=== PATIENT | male | born 2000 | race Caucasian/White ===

== ENCOUNTER 2020-01-15 18:46 | Emergency (ER) | payer OTHER, SELFPAY ==
[2020-01-15 19:00] VITALS: BP 113/70; PULSE 57; RESP 16; TEMP 37; O2SAT 98
--- NOTE | 2020-01-15 19:00 | ED.ABDPAIN ---
HPI - Abdominal Pain General Chief Complaint: Abdominal Pain Stated Complaint: abd pain Time Seen by Provider: 01/15/20 19:01 Source: patient and RN notes reviewed Mode of arrival: ambulatory Limitations: no limitations History of Present Illness HPI narrative: 19-year-old male presents with concern for right lower quadrant abdominal pain that started last night. Reports at rest the abdominal pain 2/10, when he presses on the right lower quadrant the pain is 6/10. He reports normal appetite, had a normal bowel movement this morning. Denies nausea, vomiting, fever, back pain. Denies dysuria, hematuria, scrotal pain, swelling, redness. Denies abdominal injury or trauma. MD elicited complaint: abdominal pain Related Data Home Medications Medication Instructions Recorded Confirmed No Home Medications 01/15/20 01/15/20 Allergies Allergy/AdvReac Type Severity Reaction Status Date / Time No Known Allergies Allergy Verified 01/15/20 19:04 Review of Systems Review of Systems: Narrative: CONSTITUTIONAL: Denies malaise, chills, sweats, or fever. ENT: Denies rhinorrhea, congestion, sinus pain, otalgia or sore throat. CARDIOVASCULAR: Denies chest pain, palpitations, or edema. RESPIRATORY: Denies dyspnea. GASTROINTESTINAL: Reports right lower quadrant abdominal pain. Denies nausea, vomiting, diarrhea, bloody, or mucous stools. GENITOURINARY: Denies dysuria or hematuria. Denies scrotal pain, swelling, redness MUSCULOSKELETAL: Denies back pain, joint pain, or myalgia. All systems reviewed & are unremarkable except as noted in HPI and below PMFSH Social History Social History Gender identity (if verbalized by the patient): Male Comments At time of signature, agree with nursing past medical, surgical, social and family history. There is no relevant family history pertinent to the presenting complaint Exam Narrative: Exam Narrative: GENERAL: Well-appearing, well-nourished, and in no acute distress. HEAD: Normocephalic, atraumatic. EYES: PERRLA, conjunctivae clear, and EOMI. ENT: Mucous membranes moist. NECK: Supple. No lymphadenopathy CHEST: Speaks in full sentences. No respiratory distress. HEART: Regular rate and rhythm. ABDOMEN: Soft, flat, nondistended. Mild right lower quadrant tenderness no guarding, rebound tenderness, or rigidity. No pulsatilla masses. Bowel sounds present in all four quadrants. No organomegaly. Negative Bruce?s sign. No periumbilical tenderness. No Supra public tenderness or distension. Good femoral pulses bilaterally. No hernia noted. No scars or surface trauma. SKIN: Warm, dry, no rash. NEURO: Alert and oriented x3. PSYCH: Normal mood and affect Course Course Emergency Course: Discussed with patient limited diagnostic capability at [facility], transferring to emergency room for further evaluation. Patient is nontoxic appearing. Patient reports at this time he chooses to monitor his symptoms, he understands reasons to go to the emergency room. Patient is aware of, understands and agrees to treatment plan. Anticipatory guidance given. Patient agrees to follow-up as directed and is aware of reasons to seek care at the emergency department. Portions of this record may have been created with voice recognition software Vital Signs Vital signs: Vital Signs Temperature 98.6 F 01/15/20 19:00 Pulse Rate 57 L 01/15/20 19:00 Respiratory Rate 16 01/15/20 19:00 Blood Pressure 113/70 01/15/20 19:00 Pulse Oximetry 98 01/15/20 19:00 Temperature 98.6 F 01/15/20 19:00 Pulse Rate 57 L 01/15/20 19:00 Respiratory Rate 16 01/15/20 19:00 Blood Pressure 113/70 01/15/20 19:00 Pulse Oximetry 98 01/15/20 19:00 Reviewed. MDM - Abdominal Pain MDM Narrative Medical decision making narrative: No evidence of pancreatitis, AAA, cholecystitis, choledocholithiasis, cholangitis, mesenteric ischemia, small bowel obstruction, diverticulitis, colitis, appendicitis, or pelvi
== END 2020-01-15 19:17 | disposition home or self-care (01) ==
PROVIDERS: Emergency Provider Nurse Practitioner
DX: R10.31 Right lower quadrant pain (principal)
CPT/HCPCS: 99201; G0463